=== PATIENT | male | born 2000 | race African-American/Black ===

== ENCOUNTER 2024-01-05 16:56 | Emergency (ER) | payer OTHER ==
[2024-01-05 17:21] VITALS: RESP 18; BMI 20.2
[2024-01-05] MEDS ORDERED: ACETAMINOPHEN 500 MG TABLET (FP) ONE (18:10)
[2024-01-05] MEDS ORDERED: oxyCODONE HCL 5 MG TABLET ONE (18:12)
[2024-01-05] MEDS: oxyCODONE HCL 5 MG TABLET PO ONE (18:15)
[2024-01-05] MEDS: ACETAMINOPHEN 500 MG TABLET (FP) PO ONE (18:16)
[2024-01-05] MEDS ORDERED: IBUPROFEN 600 MG TABLET (FP) PO ONE (21:12)
[2024-01-05] MEDS: IBUPROFEN 600 MG TABLET (FP) PO ONE (21:20)
[2024-01-05 23:57] VITALS: BP 115/61; PULSE 56; TEMP 98.3
== END 2024-01-06 03:35 | disposition home or self-care (01) ==
LOC: JERFT 16:56 → JER 16:56
PROC: 2W3RX1Z Immobilization of Left Lower Leg using Splint (ICD-10-PCS; principal; 2024-01-05)
DX: S92.255A Nondisplaced fracture of navicular [scaphoid] of left foot, initial encounter for closed fracture (principal); V29.401A Electric (assisted) bicycle driver injured in collision with unspecified motor vehicles in traffic accident, initial encounter
CPT/HCPCS: 70450-TC; 72125-TC; 73610-TC-LT-FY; 73630-TC-LT; 73700-TC-RT; 99284-25